=== PATIENT | female | born 1945 ===

== ENCOUNTER 2018-02-28 13:22 | Emergency (ER) | payer OTHER ==
[2018-02-28 13:43] VITALS: BP 154/74; PULSE 76; RESP 20; TEMP 98.7; O2SAT 96
[2018-02-28] MEDS ORDERED: Naproxen 550 mg Tab PO STA (14:48)
[2018-02-28] MEDS ORDERED: Bacitracin 500 Units/gm Oint Foilpak UD TOP ONE (14:48)
[2018-02-28] MEDS ORDERED: Lidocaine 5% Patch TD STA (14:48)
--- NOTE | 2018-02-28 14:48 | C.PDOC ---
History Of Present Illness 72 y/o female pt presents to the ER for a right mid back, right upper arm, and persistent lower back pain from a fall 5 days ago. Pt reports that she accidentally fell against the edge of the bathtub and thought the pain would improve by now; states the pain is worsened with movement. She denies any head injury or loss of consciousness. Pt reports limited improvement with Motrin ( unknown dose). VIA TRANS SP FALL 5 DAYS AGO CO INJURY R MID BACK, R UPPER ARM, PERSIST PAIN LOWER BACK. ACCID FALL AGAINST EDGE OF BATHTUB. PS THOUGHT PAIN WOULD IMPROVE BY NOW. PAIN WORSE W MOVEMENT. LIMITED IMPROVE W UNK DOSE MOTRIN TID. EXAM MILD DIST NOTNOXIC HEENT ATRAUMA BACK +CONTUSION R MID BACK NO SWELLING, CREPITUS. NO SPINAL TEND. GEN TEND B/L LOWER BACK W SPASM. LIMITED ROM DUE TO PAIN SKIN ABRASION R MID BACK, NO INFXN, DC. EXT RUE +CONTUSION UPPER HUMERUS, AROM WO DIFF. 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 History/Exam Limitations: no limitations Onset/Duration Of Symptoms: Days Injury Occurred (Timing): Days Ago: (5) Location Of Injury: Right: Arm (right upper arm), Back (mid back and lower back) - Fall Fall:Prior To Injury: Other (accidental fall) Past Medical History Reviewed: Historical Data, Nursing Documentation, Vital Signs Vital Signs: Last Vital Signs Temp 98.7 F 02/28/18 13:40 Pulse 76 02/28/18 13:40 Resp 20 02/28/18 13:40 BP 154/74 H 02/28/18 13:40 Pulse Ox 96 02/28/18 15:42 - Medical History PMH: HTN, Hypercholesterolemia Family History: States: No Known Family Hx - Social History Hx Alcohol Use: No Hx Substance Use: No Review Of Systems Except As Marked, All Systems Reviewed And Found Negative. Musculoskeletal: Positive for: Arm Pain (upper right arm), Back Pain (mid and lower back) Neurological: Negative for: Headache, Other (loss of consciousness) Physical Exam - Physical Exam Appears: Non-toxic, No Acute Distress Skin: Normal Color, Warm, Dry Head: Atraumatic, Normacephalic Eye(s): bilateral: Normal Inspection Neck: Normal ROM, Supple Chest: Symmetrical, No Deformity Cardiovascular: Rhythm Regular Respiratory: Normal Breath Sounds, No Rales, No Rhonchi, No Wheezing, Other ( NARD) Back: Normal Inspection (no swelling or crepitus), No CVA Tenderness, No Vertebral Tenderness, Decreased ROM (limited ROM of right mid and lower back due to pain ), Muscle Spasm (bilateral lower back spasm), Other (+ contusion to right mid back) Extremity: Normal ROM (x4), Other (+contusion right upper humerus) Pulses: Left Radial: Normal, Right Radial: Normal Neurological/Psych: Oriented x3, Normal Speech ED Course And Treatment O2 Sat by Pulse Oximetry: 96 (RA) Pulse Ox Interpretation: Normal - Radiology CXR: Interpreted by Me CXR Interpretation: Yes: No Acute Disease - Other Rad R RIBS X-Ray: Interpreted by Me (NEG) Progress Note: Ordered: Ribs and Chest x-ray. Meds: naproxen 550 mg, bacitracin , Flexeril, Lidoderm, and Tylenol Disposition Counseled Patient/Family Regarding: Studies Performed, Diagnosis, Need For Followup, Rx Given - Disposition Referrals: your,pmd [Other] Disposition: HOME/ ROUTINE Disposition Time: 15:36 Condition: IMPROVED Additional Instructions: APLICA PARCHE AL CHRISSIE AFECTADA. MAX 3 PARCHES A LA VEZ. RETIRE EL PATCH 12 HORAS DESPUS DE LA APLICACIN INICIAL. ALTERNATIVAS 12 HORAS ACTIVADAS, 12 HORAS DESACTIVADAS. Prescriptions: Acetaminophen [Tylenol Extra Strength] 2 tab PO Q6 #30 tablet Cyclobenzaprine [Flexeril] 5 mg PO TID #15 tab Ibuprofen [Motrin] 400 mg PO QID #30 tab Lidocaine 5% [Lidoderm] 1 ea TD PRN PRN #10 patch PRN Reason: Pain, Moderate (4-7) Instructions: Low Back Pain (DC), Wound Care (DC), Bruised Rib (DC) Forms: [facility] (Turkmen) Print Language: UKRAINIAN - Clinical Impression Clinical Impression: Low back strain, Rib contusion, Abrasion, Arm contusion - Scribe Statement The provider has reviewed the documentation as recorded by the Kathryn Kimball Do Provider Attestation: All medical record entries made by the Scribe were at my direction and personally dictated by me. I have reviewed the chart and agree that the record accurately reflects my personal performance of the history, physical exam, medical decision making, and the department course for this patient. I have also personally directed, reviewed, and agree with the discharge instructions and disposition.
[2018-02-28] MEDS ORDERED: Lidocaine 5% Patch TD ONE (14:57)
[2018-02-28] MEDS ORDERED: Naproxen 550 mg Tab PO ONE (14:58)
[2018-02-28] MEDS ORDERED: Bacitracin 500 Units/gm Oint Foilpak UD ONE (14:58)
--- NOTE | 2018-02-28 15:45 | RAD ---
Date of service: 02/28/2018 PROCEDURE: Radiographs of the Chest and Right Ribs. HISTORY: TRAUMA COMPARISON: None available. TECHNIQUE: Frontal radiograph of the chest and multiple oblique radiographs of the right ribs were obtained. FINDINGS: RIGHT RIBS: No fracture or focal lesion visualized. LUNGS: Clear. PLEURA: No pneumothorax or pleural fluid. CARDIOVASCULAR: Atherosclerotic aortic calcifications. Cardiomediastinal silhouette within normal limits. OTHER FINDINGS: None. IMPRESSION: Unremarkable radiographs of the chest and right ribs. No right rib fracture.
== END 2018-02-28 15:49 | disposition home or self-care (01) ==
LOC: C.ER 13:22
DX: S39.012A Strain of muscle, fascia and tendon of lower back, initial encounter (principal); S20.211A Contusion of right front wall of thorax, initial encounter; S40.021A Contusion of right upper arm, initial encounter; W01.198A Fall on same level from slipping, tripping and stumbling with subsequent striking against other object, initial encounter; Y92.002 Bathroom of unspecified non-institutional (private) residence as the place of occurrence of the external cause

== ENCOUNTER 2018-05-27 16:11 | Emergency (ER) | payer OTHER ==
[2018-05-27 16:29] VITALS: RESP 18
--- NOTE | 2018-05-27 17:01 | C.PDOC ---
History Of Present Illness 72-year-old female, presents to the emergency department with complaints of several scrapes on body s/p mechanical fall. Patient states she was walking in a parking lot three days ago, when she lost her balance and fell. She denies any head injury, loss of consciousness, nausea/vomiting, numbness/weakness or any other associated symptoms. No other complaints at this time. Time Seen by Provider: 05/27/18 16:46 Chief Complaint (Nursing): Upper Extremity Problem/Injury History Per: Patient History/Exam Limitations: no limitations Onset/Duration Of Symptoms: Days Current Symptoms Are (Timing): Still Present Past Medical History Reviewed: Historical Data, Nursing Documentation, Vital Signs Vital Signs: Last Vital Signs Temp 98.8 F 05/27/18 16:25 Pulse 76 05/27/18 16:25 Resp 18 05/27/18 16:25 BP 164/65 H 05/27/18 16:25 Pulse Ox 97 05/27/18 16:25 - Medical History PMH: HTN, Hypercholesterolemia, Osteoporosis Family History: States: No Known Family Hx - Social History Hx Alcohol Use: No Hx Substance Use: No Review Of Systems Constitutional: Negative for: Fever Cardiovascular: Negative for: Light Headedness Gastrointestinal: Negative for: Vomiting Musculoskeletal: Negative for: Neck Pain, Back Pain Neurological: Negative for: Weakness, Numbness, Headache, Dizziness Physical Exam - Physical Exam Appears: Non-toxic, No Acute Distress Skin: Warm, Dry, No Rash, Other (superficial abrasion to B/L knees) Head: Atraumatic, Normacephalic Eye(s): bilateral: Normal Inspection, PERRL, EOMI Nose: Normal Oral Mucosa: Moist Lips: Normal Appearing Neck: Normal ROM Chest: Symmetrical Cardiovascular: Rhythm Regular, No Murmur Respiratory: Normal Breath Sounds, No Accessory Muscle Use Gastrointestinal/Abdominal: Normal Exam Extremity: Tenderness, Capillary Refill (less 2 sec), No Deformity, Other (Right shoulder +painful range of motion. +echymosis to forearm. + all fingers warm, no sign of compartment syndrom) Neurological/Psych: Oriented x3, Normal Speech ED Course And Treatment - Laboratory Results Result Diagrams: 05/27/18 18:27 05/27/18 18:27 Lab Interpretation: Abnormal (HYPERGLYCEMIA NOTED) O2 Sat by Pulse Oximetry: 97 Pulse Ox Interpretation: Normal (RA) - Other Rad right shoulder, right forearm, right hand xrays X-Ray: Interpreted by Me Interpretation: all 3 xrays no acute fx or dislocation Progress Note: sling applied for comfort Reassessment Condition: Improved Medical Decision Making Medical Decision Making: Plan: * X-Rays * Ibuprofen * Reassess and Disposition Initially, pt declining pain medication. After assessment, pt requesting Tylenol. Disposition Counseled Patient/Family Regarding: Studies Performed, Diagnosis, Need For Followup, Rx Given - Disposition Referrals: Ghazala Hobson MD [Staff Provider] - Katt Mccormick MD [Medical Doctor] - Disposition: HOME/ ROUTINE Disposition Time: 19:28 Condition: STABLE Additional Instructions: FOLLOW UP WITH ORTHOPAEDIST IN 1-2 DAYS FOR RE-EVALUATION AND OFFICIAL XRAY REPORT. SLING FOR COMFORT. IF SYMPTOMS GET WORSE OR ANY NEW CONCERNING SYMPTOMS DEVELOP RETURN TO ED. Prescriptions: Bacitracin 1 apful EXT TID #30 g Ibuprofen [Ibu] 400 mg PO Q6H PRN #15 tablet PRN Reason: Pain, Moderate (4-7) Instructions: Shoulder Sprain, Muscle Strain (DC), Skin Abrasions (DC) Forms: [facility] (Cuban), Gen Discharge Inst Hebrew Print Language: RUSSIAN - Clinical Impression Clinical Impression: Abrasion, Shoulder sprain, Forearm contusion, Hand sprain - Scribe Statement The provider has reviewed the documentation as recorded by the Scribe (Alia Torres) All medical record entries made by the Scribe were at my direction and personally dictated by me. I have reviewed the chart and agree that the record accurately reflects my personal performance of the history, physical exam, medical decision making, and the department course for this patient. I have also personally directed, reviewed, and agree with the discharge instructions and disposition.
[2018-05-27 18:32] LABS: BASO % 0.7 % (0.0-2.0); EOS # 0.1 K/uL (0.0-0.7); EOS % 1.1 % (0.0-4.0); HEMOGLOBIN 13.4 g/dL (11.0-16.0); LYMPH # 1.4 K/uL (1.0-4.3); LYMPH % 28.4 % (20.0-40.0); MEAN CELL VOLUME 85.3 fL (81.0-99.0); MEAN CORPUSCULAR HEMOGLOBIN 28.7 pg (27.0-31.0); MEAN CORPUSCULAR HGB CONC 33.7 g/dL (33.0-37.0); MEAN PLATELET VOLUME 10.3 fL (7.2-11.7); MONO # 0.3 K/uL (0.0-0.8); MONO % 5.7 % (0.0-10.0); NEUT # 3.2 K/uL (1.8-7.0); NEUT % 64.1 % (50.0-75.0); NRBC % 0.2 % (0.0-2.0); RBC 4.66 Mil/uL (3.80-5.20); RED CELL DISTRIBUTION WIDTH 15.1 % (11.5-14.5); WHITE BLOOD COUNT 4.9 K/uL (4.8-10.8)
[2018-05-27 18:44] LABS: PARTIAL THROMBOPLASTIN TIME 28 SECONDS (21-34)
[2018-05-27 18:47] LABS: D DIMER < 200 ng/mlDDU (0-243)
[2018-05-27 18:48] LABS: ALB/GLOB RATIO 1.7 (1.0-2.1); ALBUMIN 4.7 g/dL (3.5-5.0); ALT/SGPT 31 U/L (9-52); AST/SGOT 26 U/L (14-36); BLOOD UREA NITROGEN 13 mg/dL (7-17); CALCIUM 9.9 mg/dl (8.6-10.4); GFR NON-AFRICAN AMERICAN > 60
[2018-05-27 19:29] VITALS: BP 150/63; PULSE 66; TEMP 98.2
[2018-05-27 19:31] VITALS: O2SAT 97
--- NOTE | 2018-05-28 10:06 | RAD ---
PROCEDURE: Radiographs of the Right Forearm HISTORY: PAIN P FALL COMPARISON: Correlation made with concurrent radiographs of the right hand TECHNIQUE: Frontal and lateral views obtained. FINDINGS: BONES: No fracture or destructive lesion. JOINT SPACES: Unremarkable. OTHER FINDINGS: None. IMPRESSION: No evidence of acute displaced fracture nor dislocation.
--- NOTE | 2018-05-28 10:10 | RAD ---
PROCEDURE: Right Hand Radiographs. HISTORY: PAIN P FALL COMPARISON: Correlation made with concurrent radiographs of the right forearm. FINDINGS: BONES: No evidence of acute displaced fracture nor dislocation. The osseous structures appear intact however mild diffuse demineralization changes are felt to be present.. JOINTS: Minor multi articular degenerative osteoarthritis. SOFT TISSUES: Normal. OTHER FINDINGS: None. IMPRESSION: No acute displaced fracture nor dislocation. If symptoms persist or occult fracture suspected clinically recommend repeat radiographs in 5-10 days as most fractures should become radiographically evident in this timeframe.
--- NOTE | 2018-05-28 10:19 | RAD ---
Date of service: 05/27/2018 PROCEDURE: Radiographs of the Right Shoulder HISTORY: PAIN P FALL COMPARISON: No prior. FINDINGS: BONES: No definitive evidence of acute displaced fracture nor dislocation. JOINTS: Significant degenerative osteoarthritis right acromioclavicular joint with surrounding heterotopic bone changes. There is mild degenerative osteoarthritis right glenohumeral joint as well. SOFT TISSUES: Normal. OTHER FINDINGS: None. IMPRESSION: No definitive evidence of acute displaced fracture nor dislocation. DJD right acromioclavicular and to a lesser degree could clinically consider repeat radiographs in 5-10 days as most fractures should become radiographically evident in
== END 2018-05-27 19:36 | disposition home or self-care (01) ==
LOC: C.ER 16:11
DX: S80.212A Abrasion, left knee, initial encounter (principal); S80.211A Abrasion, right knee, initial encounter; S43.401A Unspecified sprain of right shoulder joint, initial encounter; S63.91XA Sprain of unspecified part of right wrist and hand, initial encounter; S50.11XA Contusion of right forearm, initial encounter; W18.30XA Fall on same level, unspecified, initial encounter; Y93.01 Activity, walking, marching and hiking; Y92.481 Parking lot as the place of occurrence of the external cause